=== PATIENT | male | born 1945 | race Caucasian/White ===

== ENCOUNTER 2016-11-04 14:24 | Emergency (ER) | payer BC, MEDICARE ==
[2016-11-04 14:53] VITALS: BP 113/69; PULSE 63; RESP 18; TEMP 98.4; O2SAT 100
[2016-11-04] MEDS ORDERED: Bacitracin 500 Units/gm Oint Foilpak UD ONE (15:26)
[2016-11-04] MEDS ORDERED: Tetanus/Diphtheria Toxoids 0.5 ml Syringe IM ONE (15:26)
--- NOTE | 2016-11-04 15:26 | C.PDOC ---
History Of Present Illness 70 yr old male presents to the ER with complaints of skin tear to the left forearm, sustained [employer]. Patient states he accidentally struck his arm on a edge while at work and now has bleeding to the area. Denies shoulder pain, arm pain, back pain, weakness or numbness. CO SKIN TEAR L FOREARM ONSET [employer]. ACCID STRUCK ON EDGE @ WORK. CO BLEEDING TO AREA. EXAM NAD SKIN +SKIN TEAR MID L FOREARM W MIN ACTIVE BLEEDING. NO FB. CLEAN REMAINDER NEG WOUND CARE AREA IRRIGATED W NS. PRESSURE DRESSING, BACITRACIN, DRESSING. Time Seen by Provider: 11/04/16 15:14 Chief Complaint (Nursing): Abnormal Skin Integrity History Per: Patient History/Exam Limitations: no limitations Onset/Duration Of Symptoms: Sudden Onset ([employer]) Past Medical History Reviewed: Historical Data, Nursing Documentation, Vital Signs Vital Signs: Last Vital Signs Temp 98.4 F 11/04/16 14:51 Pulse 63 11/04/16 14:51 Resp 18 11/04/16 14:51 BP 113/69 11/04/16 14:51 Pulse Ox 100 11/04/16 15:26 - Medical History PMH: HTN Family History: States: No Known Family Hx - Social History Hx Alcohol Use: No Hx Substance Use: No - Immunization History Hx Tetanus Toxoid Vaccination: No Hx Influenza Vaccination: No Hx Pneumococcal Vaccination: No Review Of Systems Except As Marked, All Systems Reviewed And Found Negative. Musculoskeletal: Negative for: Shoulder Pain, Arm Pain, Back Pain Skin: Positive for: Other ((+) Skin tear to the left forearm.) Neurological: Negative for: Weakness, Numbness Physical Exam - Physical Exam Appears: Non-toxic, No Acute Distress Skin: Warm, Dry, Other ((+) Skin tear to the mid left forearm with minimal active bleeding. No FB. Clean.) Head: Atraumatic, Normacephalic Oral Mucosa: Moist Chest: Symmetrical Cardiovascular: Rhythm Regular, No Murmur Extremity: Normal ROM, No Swelling Neurological/Psych: Oriented x3, Normal Speech, Normal Motor ED Course And Treatment O2 Sat by Pulse Oximetry: 100 (RA) Pulse Ox Interpretation: Normal Disposition Counseled Patient/Family Regarding: Diagnosis, Need For Followup, Rx Given - Disposition Referrals: YOUR,PMD [Other] Disposition: HOME/ ROUTINE Disposition Time: 15:25 Condition: IMPROVED Prescriptions: Cephalexin [cephalexin] 500 mg PO BID #14 cap Instructions: Skin Tear (ED) Forms: [facility] (Algerian), Work Excuse Print Language: LITHUANIAN - Clinical Impression Clinical Impression: Skin tear - Scribe Statement The provider has reviewed the documentation as recorded by the Jamaibade Casey Provider Attestation: All medical record entries made by the Jamaibade were at my direction and personally dictated by me. I have reviewed the chart and agree that the record accurately reflects my personal performance of the history, physical exam, medical decision making, and the department course for this patient. I have also personally directed, reviewed, and agree with the discharge instructions and disposition.
[2016-11-04] MEDS ORDERED: Bacitracin Ointment 30 GM TUBE TOP ONE (15:33)
== END 2016-11-04 15:48 | disposition home or self-care (01) ==
LOC: C.ER 14:24
DX: S51.812A Laceration without foreign body of left forearm, initial encounter (principal); W22.8XXA Striking against or struck by other objects, initial encounter; Y93.89 Activity, other specified; Y92.89 Other specified places as the place of occurrence of the external cause; Y99.8 Other external cause status